=== PATIENT | female | born 1965 | race Two or more races ===

== ENCOUNTER 2023-10-27 12:09 | Emergency (ER) | payer MEDICAID | END 2023-10-27 13:00 | disposition left against medical advice (07) | LOC: ER 12:09 | DX: R11.2 Nausea with vomiting, unspecified (principal); Z53.21 Procedure and treatment not carried out due to patient leaving prior to being seen by health care provider ==

== ENCOUNTER 2024-06-11 08:11 | Inpatient (IN) | payer MEDICAID ==
[2024-06-11] VITALS (53 sets, daily range): BP systolic 68–167; BP diastolic 28–89; PULSE 89–166; RESP 12–46; TEMP 97.7–102.9; O2SAT 94–100
[~2024-06-11] VITALS: Ht 167.6 cm; Wt 114.2 kg
[2024-06-11] MEDS ORDERED: DEXTROSE (50%) 50ML SYRG IV PRN ×3 (08:15→12:45)
[2024-06-11] MEDS: ANGIOMAX 250 MG VIAL IV ONE ×2 (08:17→22:34)
[2024-06-11] MEDS: fentaNYL CITRATE 100 MCG/2 ML VL ONE ×2 (08:17→22:35)
[2024-06-11] MEDS: VERAPAMIL 2.5MG/ML INJ 2ML VIAL IV ONE ×2 (08:17→22:36)
[2024-06-11] MEDS: SODIUM CHL 0.9% 50 ML ONE ×2 (08:18→22:35)
[2024-06-11] MEDS: MIDAZOLAM HCL 2MG/2ML 2ml VIAL (1mg/ml) ONE ×2 (08:18→22:35)
[2024-06-11] MEDS: LIDOCAINE 2%HCL (LOCAL ANESTH.) INJ 20ML MDV ONE ×2 (08:19→22:34)
[2024-06-11] MEDS: ASPirin 300 MG RECTAL SUPP PR ONE (08:30)
[2024-06-11] MEDS: ONDANSETRON HCL 4 MG/2 ML VIAL IV ONE (08:33)
[2024-06-11] MEDS: HEPARIN SODIUM (PORCINE) 5000 UNITS/ML 1ML VIAL IV ONE (08:34)
[2024-06-11] MEDS: INSULIN LANTUS (GLARGINE) 1 /0.01ml (100units/ml) SC ONE (08:35)
[2024-06-11] MEDS: HEPARIN SODIUM (PORCINE) 5000 UNITS/ML 1ML VIAL ONE ×2 (08:35→20:24)
[2024-06-11] MEDS: ASPirin 325 MG TAB PO ONE (08:36)
[2024-06-11 08:41] LABS: Eosinophils # (auto) 0 10 ^3/uL (0-0.8); Hemoglobin 11.7 g/dL (12.2-16.2); Monocytes # (auto) 1.1 10 ^3/uL (0-1.3); Monocytes % (auto) 5.5 % (0.0-12.0); Neutrophils # (auto) 17.8 10 ^3/uL (1.6-8.6); Neutrophils % (auto) 91.3 % (37.0-80.0); White Blood Cell 19.5 10^3/uL (4.4-10.8)
[2024-06-11 08:42] LABS: Basophils # (auto) 0.1 10 ^3/uL (0-0.2); Basophils % (auto) 0.4 % (0.0-2.0); Eosinophils % (auto) 0.1 % (0.0-7.0); Hematocrit 34.7 % (36.0-46.0); Lymphocytes # (auto) 0.5 10 ^3/uL (0.4-5.4); Lymphocytes % (auto) 2.7 % (10.0-50.0); Mean Corpuscular Hgb Conc. 33.8 g/dL (32.0-36.0); Mean Corpuscular Volume 79.9 fL (80.0-100.0); Red Blood Cells 4.34 10^6/uL (4.0-5.20)
[2024-06-11] MEDS ORDERED: NITROGLYCERIN 0.4 MG SL TAB SL PRN (09:00)
[2024-06-11] MEDS ORDERED: DOCUSATE SOD 100 MG CAP PO PRN (09:00)
[2024-06-11] MEDS ORDERED: ACCU-CHEK COMFORT CURVE STRIP VI SCH ×2 (09:00→16:00)
[2024-06-11] MEDS ORDERED: MORPHINE SULFATE INJ 2 MG/ml SYRG IV PRN (09:00)
[2024-06-11] MEDS: InsuLIN REG 1unit/0.01ml Soln (100units/ml) ONE (09:01)
[2024-06-11 09:03] LABS: INR 1.13 (0.9-1.15); Partial Thromboplastin Time 23.7 SEC (24.5-34.5); Prothrombin Time 11.9 sec (9.3-11.8)
[2024-06-11 09:09] LABS: Base Excess -2.7 mmol/L (-2.0-2.0)
[2024-06-11] MEDS: InsuLIN REG 1unit/0.01ml Soln (100units/ml) IV ONE (09:15)
[2024-06-11] MEDS: EPTIFIBATIDE INJ (2MG/ML) 10ML VIAL IV ONE (09:18)
[2024-06-11] MEDS: EPINEPHrine HCL 1 MG/10 ML SYRG ONE (09:20)
[2024-06-11] MEDS: ATROPINE SULF 1 MG/10ml SYR ONE ×2 (09:20→22:36)
[2024-06-11] MEDS: CLOPIDOGREL BISULFATE 75 MG TAB ONE (09:45)
[2024-06-11] MEDS: ASPirin 325 MG TAB ONE (09:45)
[2024-06-11 09:59] LABS: Alanine Aminotransferase 43 U/L (7-40); Albumin 2.9 g/dL (3.2-4.8); Alkaline Phosphatase 101 U/L (46-116); Anion Gap 9 (5-15); Aspartate Aminotransferase 329 U/L (13-40); BUN/Creatinine Ratio 30.7 (10.0-20.0); Bilirubin, Total 0.8 mg/dL (0.2-1.0); Blood Urea Nitrogen 75 mg/dL (9-23); Calcium 7.9 mg/dL (8.7-10.4); Carbon Dioxide 27 mmol/L (20-30); Chloride 97 mmol/L (98-107); Cholesterol 114 mg/dL (< 200); HDL Cholesterol 8 mg/dL (40-59); LDL Cholesterol 42 mg/dL (< 100); Magnesium 1.9 mg/dL (1.6-2.6); Sodium 133 mmol/L (136-145); Total Protein 4.9 g/dL (5.7-8.2); Triglycerides 322 mg/dL (< 150)
[2024-06-11] MEDS: PANTOPRAZOLE 40 MG/10 ML VIAL INJ IV SCH (10:00)
[2024-06-11 10:01] LABS: Glucose 666 mg/dL (74-106)
[2024-06-11] MEDS: SODIUM CHLORIDE 0.9% 1,000 ML IV SCH ×3 (10:15→14:15)
[2024-06-11] MEDS: SODIUM CHLORIDE 0.9% 1,000 ML IV ONE (10:30)
[2024-06-11] MEDS: NOREPINEPHRINE 8 MG/250ML KIT 250 ML IV SCH (11:04)
[2024-06-11] MEDS: POTASSIUM CHL 20MEQ/100ML 100 ML IV SCH ×2 (11:09→19:04)
[2024-06-11] MEDS: PANTOPRAZOLE 40 MG/10 ML VIAL INJ IV ONE (11:09)
[2024-06-11] MEDS: NOREPINEPHRINE 8 MG/250ML KIT 250 ML IV ONE (11:12)
[2024-06-11] MEDS: ACCU-CHEK COMFORT CURVE STRIP VI SCH ×2 (11:37→15:03)
[2024-06-11] MEDS ORDERED: CEFEPIME 2GM/50ML NS 50 ML IV ONE (11:45)
[2024-06-11] MEDS: SODIUM PHOSPHATES 40 MEQ in D5W 5% 250 ML IV ONE (12:00)
[2024-06-11] MEDS: LINEZOLID 600MG/300ML 300 ML IV SCH ×2 (12:01→12:15)
[2024-06-11 13:40] LABS: Lactic Acid w/Reflex 3.7 mmol/L (0.4-2.0)
[2024-06-11 13:42] LABS: Urine Bacteria None Seen /hpf (None Seen)
[2024-06-11] MEDS: CEFEPIME 2GM/50ML NS 50 ML IV ONE (13:44)
[2024-06-11] MEDS ORDERED: CEFEPIME 2GM/50ML NS 50 ML IV SCH (14:00)
[2024-06-11] MEDS: INSULIN DRIP 100 UNIT/100ML 100 ML IV SCH (14:11)
[2024-06-11 14:31] LABS: Chloride 104 mmol/L (98-107); Potassium 3.1 mmol/L (3.5-5.1); Sodium 137 mmol/L (136-145)
[2024-06-11 14:32] LABS: Anion Gap 12 (5-15); Carbon Dioxide 21 mmol/L (20-30)
[2024-06-11 14:33] LABS: Calcium 7.4 mg/dL (8.7-10.4)
[2024-06-11 14:33] LABS: Urine Blood 3+ /uL (Negative); Urine Budding Yeast LOADED /hpf (None Seen); Urine Clarity Ex.Turbid (Clear); Urine Color Red (Yellow); Urine Mucus MANY (None Seen); Urine Protein, UAD 2+ (Negative); Urine Urobilinogen Normal (Negative); Urine WBC 20853 /hpf (0 - 5); Urine WBC Clumps PRESENT /hpf (None Seen)
[2024-06-11 14:37] LABS: Amphetamine Screen, Urine Neg (NEGATIVE); Barbiturate Scree,Urine Neg (NEGATIVE); Benzodiazephine Screen, Urine Neg (NEGATIVE); Cannabinoid Screen, Urine Neg (NEGATIVE); Cocaine Screen, Urine Neg (NEGATIVE); Opiate Scree,Urine Neg (NEGATIVE); Phencyclidine Screen, Urine Neg (NEGATIVE)
[2024-06-11 14:38] LABS: BUN/Creatinine Ratio 27.6 (10.0-20.0)
[2024-06-11 14:38] LABS: Creatinine, Urine 109.34 mg/dL (30.0-125.0)
[2024-06-11 14:58] LABS: Blood Urea Nitrogen 61 mg/dL (9-23)
[2024-06-11 14:59] LABS: Glucose 521 mg/dL (74-106)
[2024-06-11 15:28] LABS: Base Excess -3.7 mmol/L (-2.0-2.0)
[2024-06-11 15:40] LABS: Hematocrit 34.5 % (36.0-46.0); Hemoglobin 11.5 g/dL (12.2-16.2)
[2024-06-11] MEDS: InsuLIN REG 1unit/0.01ml Soln (100units/ml) SC SCH (16:00)
[2024-06-11] MEDS: ACETAMINOPHEN 650 MG RECT SUPP PR PRN (16:39)
[2024-06-11] MEDS: LIDOCAINE 1% (LOCAL ANESTH.) PF 5ml SDV ID ONE (17:00)
[2024-06-11] MEDS: MAGNESIUM SULFATE 1GM/100ML 100 ML IV SCH (18:00)
[2024-06-11] MEDS: AMIODARONE 450mg/250ml AE 250 ML IV ONE (18:13)
[2024-06-11] MEDS: AMIODARONE HCL (50 MG/ ML) 3 ML VIAL IV ONE (18:13)
[2024-06-11] MEDS: AMIODARONE BOLUS KIT 100 ML IV ONE (18:18)
[2024-06-11] MEDS: AMIODARONE 450mg/250ml AE 250 ML IV SCH (18:31)
[2024-06-11] MEDS: ETOMIDATE (2MG/ML) 20ML VIAL IV ONE ×2 (18:39→18:40)
[2024-06-11] MEDS: ROCURONIUM 10MG/ML 10ML VIAL IV ONE (18:39)
[2024-06-11] MEDS: MAGNESIUM SULFATE 1GM/100ML 100 ML IV ONE (18:42)
[2024-06-11] MEDS: POTASSIUM CHL 20MEQ/100ML 100 ML IV ONE (18:42)
[2024-06-11 20:10] LABS: Chloride 107 mmol/L (98-107); Potassium 3.1 mmol/L (3.5-5.1); Sodium 138 mmol/L (136-145)
[2024-06-11 20:11] LABS: Anion Gap 13 (5-15); Calcium 7.7 mg/dL (8.7-10.4); Carbon Dioxide 18 mmol/L (20-30)
[2024-06-11 20:16] LABS: BUN/Creatinine Ratio 19.9 (10.0-20.0); Blood Urea Nitrogen 51 mg/dL (9-23); Glucose 395 mg/dL (74-106)
[2024-06-11] MEDS: CALCIUM GLUC 1,000mg/50ml-NS 50 ML IV ONE (20:17)
[2024-06-11] MEDS: fentaNYL Drip 2500mCg/250mlNS 250 ML IV SCH (21:36)
[2024-06-11] MEDS: SODIUM CHLOR 0.9% PF (SALINE LOCK) 10ML VIAL/SYR IV SCH (22:00)
[2024-06-11] MEDS ORDERED: LINEZOLID 600MG/300ML 300 ML IV SCH (22:00)
[2024-06-11] MEDS: IODIXANOL 320MG/ML 100ML BTL IV ONE (22:33)
[2024-06-11] MEDS: ATORVASTATIN 20 MG TAB PO SCH (22:37)
[2024-06-11] MEDS: fentaNYL Drip 2500mCg/250mlNS 250 ML IV ONE (22:39)
[2024-06-11] MEDS: CARVEDILOL 3.125 MG TAB PO SCH (22:40)
[2024-06-11] MEDS: EPTIFIBATIDE DRIP(0.75MG/ML) 100 ML IV ONE (22:41)
[2024-06-11 23:54] LABS: Base Excess -7.7 mmol/L (-2.0-2.0)
[2024-06-12] VITALS (106 sets, daily range): BP systolic 79–134; BP diastolic 36–99; PULSE 74–119; RESP 12–28; TEMP 99.3–101.1; O2SAT 61–100
[2024-06-12 00:27] LABS: Base Excess -9.5 mmol/L (-2.0-2.0)
[2024-06-12] MEDS: AMIODARONE 450mg/250ml AE 250 ML IV SCH (00:30)
[2024-06-12 03:49] LABS: Red Cell Distribution Width 13.4 % (11.8-14.3)
[2024-06-12 03:57] LABS: Hematocrit 31.4 % (36.0-46.0); Hemoglobin 10.7 g/dL (12.2-16.2); Mean Corpuscular Hemoglobin 27.3 pg (28.0-32.0); Mean Corpuscular Hgb Conc. 34.1 g/dL (32.0-36.0); Red Blood Cells 3.93 10^6/uL (4.0-5.20)
[2024-06-12 04:01] LABS: INR 1.26 (0.9-1.15); Prothrombin Time 13.1 sec (9.3-11.8)
[2024-06-12 04:12] LABS: Alanine Aminotransferase 72 U/L (7-40); Albumin 2.6 g/dL (3.2-4.8); Anion Gap 11 (5-15); Aspartate Aminotransferase 532 U/L (13-40); BUN/Creatinine Ratio 23.5 (10.0-20.0); Calcium 7.8 mg/dL (8.7-10.4); Carbon Dioxide 20 mmol/L (20-30); Chloride 106 mmol/L (98-107); Cholesterol 95 mg/dL (< 200); Glucose 293 mg/dL (74-106); HDL Cholesterol 9 mg/dL (40-59); LDL Cholesterol 30 mg/dL (< 100); Potassium 3.2 mmol/L (3.5-5.1); Sodium 137 mmol/L (136-145); Triglycerides 264 mg/dL (< 150)
[2024-06-12 04:13] LABS: Bilirubin, Total 0.4 mg/dL (0.2-1.0); Phosphorus 2.5 mg/dL (2.4-5.1); Total Protein 5.2 g/dL (5.7-8.2)
[2024-06-12 04:14] LABS: Blood Urea Nitrogen 62 mg/dL (9-23)
[2024-06-12 04:24] LABS: Basophils % (manual) 0 (0.0-2.0); Blast Cells 0; Eosinophils % (manual) 0 (0-7); Metamyelocytes % 0; Myelocytes % 0; Promyelocytes % 0; Reactive Lymphocytes 0; White Blood Cell 32.6 10^3/uL (4.4-10.8)
[2024-06-12 04:36] LABS: Alkaline Phosphatase 119 U/L (46-116)
[2024-06-12 04:46] LABS: Uric Acid 9.4 mg/dL (3.1-7.8)
[2024-06-12 05:35] LABS: Band Neutrophils % (manual) 6; Giant Platelets Few; Large Platelets FEW; Lymphocytes % (manual) 9 (10.0-50.0); Monocytes % (manual) 6 (0-12); Platelet Estimate Adequate
[2024-06-12] MEDS: POTASSIUM CHL 20MEQ/100ML 100 ML IV ONE (05:59)
[2024-06-12 08:57] LABS: Hemoglobin 10.1 g/dL (12.2-16.2)
[2024-06-12 09:02] LABS: Hematocrit 30.1 % (36.0-46.0); Mean Corpuscular Hemoglobin 26.9 pg (28.0-32.0); Mean Corpuscular Hgb Conc. 33.4 g/dL (32.0-36.0); Mean Corpuscular Volume 80.3 fL (80.0-100.0); Red Blood Cells 3.75 10^6/uL (4.0-5.20); Red Cell Distribution Width 13.5 % (11.8-14.3)
[2024-06-12 09:10] LABS: White Blood Cell 31.9 10^3/uL (4.4-10.8)
[2024-06-12 09:12] LABS: Basophils % (manual) 0 (0.0-2.0); Blast Cells 0; Eosinophils % (manual) 0 (0-7); Metamyelocytes % 0; Myelocytes % 0; Promyelocytes % 0; Reactive Lymphocytes 0
[2024-06-12 09:45] LABS: Base Excess -9.5 mmol/L (-2.0-2.0)
[2024-06-12] MEDS ORDERED: LISINOPRIL 5 MG TAB PO SCH (10:00)
[2024-06-12] MEDS: INSULIN LANTUS (GLARGINE) 1 /0.01ml (100units/ml) SC SCH (10:24)
[2024-06-12] MEDS: ASPirin 81 mg TAB PO SCH (10:25)
[2024-06-12] MEDS: CLOPIDOGREL BISULFATE 75 MG TAB PO SCH (10:27)
[2024-06-12] MEDS: CEFEPIME 2GM/50ML NS 50 ML IV SCH (10:28)
[2024-06-12] MEDS ORDERED: DEXTROSE (50%) 50ML SYRG IV PRN (10:30)
[2024-06-12] MEDS ORDERED: SODIUM CHLORIDE 0.9% 1,000 ML IV SCH (10:30)
[2024-06-12 10:53] LABS: Band Neutrophils % (manual) 12; Lymphocytes % (manual) 8 (10.0-50.0); Monocytes % (manual) 7 (0-12); Platelet Estimate Adequate
[2024-06-12] MEDS: ACCU-CHEK COMFORT CURVE STRIP VI SCH (12:23)
[2024-06-12 12:32] LABS: Urine Bacteria FEW /hpf (None Seen); Urine Blood 3+ /uL (Negative); Urine Clarity Ex.Turbid (Clear); Urine Color Light-Orange (Yellow); Urine Mucus FEW (None Seen); Urine Protein, UAD 2+ (Negative); Urine Urobilinogen Normal (Negative); Urine WBC 177 /hpf (0 - 5); Urine WBC Clumps PRESENT /hpf (None Seen); Urine pH 5.5 (5.0-9.0)
[2024-06-12 12:35] LABS: Sodium Urine < 10 mmol/L (40-220)
[2024-06-12] MEDS: InsuLIN REG 1unit/0.01ml Soln (100units/ml) SC SCH (12:38)
[2024-06-12 12:41] LABS: Protein, Urine 233.3 mg/dL (0.0-11.9)
[2024-06-12 12:48] LABS: Urine Specific Gravity > 1.035 (1.001-1.035)
[2024-06-12 13:53] LABS: Hematocrit 27.9 % (36.0-46.0); Hemoglobin 9.2 g/dL (12.2-16.2)
[2024-06-12] MEDS: FREE WATER GT SCH (15:22)
[2024-06-12] MEDS: SODIUM CHLORIDE 0.9% 1,000 ML IV SCH (15:23)
[2024-06-12] MEDS: Nepro With Carb Steady 1 Liter Bottle GT SCH (17:12)
[2024-06-12 19:07] LABS: Potassium 2.9 mmol/L (3.5-5.1)
[2024-06-12] MEDS: POTASSIUM CHL 20MEQ/100ML 100 ML IV SCH (22:32)
[2024-06-13] VITALS (106 sets, daily range): BP systolic 95–144; BP diastolic 48–99; PULSE 85–101; RESP 13–30; TEMP 99.5–100.6; O2SAT 94–100
[2024-06-13] MEDS: SODIUM BICARB 8.4% 50Meq/50ml SYR Vial IV ONE ×2 (02:29→11:52)
[2024-06-13 04:43] LABS: Hematocrit 33.6 % (36.0-46.0); Mean Corpuscular Hemoglobin 27.3 pg (28.0-32.0); Mean Corpuscular Hgb Conc. 32.9 g/dL (32.0-36.0); Mean Corpuscular Volume 83.1 fL (80.0-100.0); Red Blood Cells 4.04 10^6/uL (4.0-5.20); Red Cell Distribution Width 14.3 % (11.8-14.3)
[2024-06-13 04:56] LABS: Alanine Aminotransferase 73 U/L (7-40); Albumin 2.7 g/dL (3.2-4.8); Alkaline Phosphatase 127 U/L (46-116); Anion Gap 10 (5-15); Aspartate Aminotransferase 309 U/L (13-40); BUN/Creatinine Ratio 22.7 (10.0-20.0); Blood Urea Nitrogen 55 mg/dL (9-23); Calcium 7.8 mg/dL (8.7-10.4); Carbon Dioxide 18 mmol/L (20-30); Chloride 109 mmol/L (98-107); Glucose 225 mg/dL (74-106); Potassium 4.1 mmol/L (3.5-5.1); Sodium 137 mmol/L (136-145)
[2024-06-13 04:57] LABS: Bilirubin, Total 0.6 mg/dL (0.2-1.0); Total Protein 5.4 g/dL (5.7-8.2)
[2024-06-13 05:26] LABS: Basophils % (manual) 0 (0.0-2.0); Blast Cells 0; Eosinophils % (manual) 0 (0-7); Metamyelocytes % 0; Myelocytes % 0; Promyelocytes % 0; Reactive Lymphocytes 0; White Blood Cell 37.5 10^3/uL (4.4-10.8)
[2024-06-13 06:19] LABS: Band Neutrophils % (manual) 5; Large Platelets FEW; Lymphocytes % (manual) 2 (10.0-50.0); Monocytes % (manual) 8 (0-12); Platelet Estimate Adequate
[2024-06-13] MEDS ORDERED: POTASSIUM CHL 20MEQ/100ML 100 ML IV ONE (08:30)
[2024-06-13] MEDS: ONDANSETRON HCL 4 MG/2 ML VIAL IV PRN (08:46)
[2024-06-13 09:15] LABS: Base Excess -9.2 mmol/L (-2.0-2.0)
[2024-06-13] MEDS ORDERED: MEROPENEM 500MG IVPB 50 ML IV SCH (10:00)
[2024-06-13] MEDS: MEROPENEM 1GM IVPB 50 ML IV SCH (11:27)
[2024-06-13] MEDS: MIDAZOLAM HCL 5 MG/ML-1ML VIAL ONE (16:26)
[2024-06-13] MEDS: MIDAZOLAM HCL 2MG/2ML 2ml VIAL (1mg/ml) IV ONE (16:30)
[2024-06-14] VITALS (104 sets, daily range): BP systolic 62–133; BP diastolic 40–72; PULSE 72–94; RESP 15–30; TEMP 96.8–101.8; O2SAT 87–100
[2024-06-14 04:10] LABS: Alanine Aminotransferase 60 U/L (7-40); Albumin 2.4 g/dL (3.2-4.8); Alkaline Phosphatase 111 U/L (46-116); Anion Gap 10 (5-15); Aspartate Aminotransferase 157 U/L (13-40); BUN/Creatinine Ratio 30.2 (10.0-20.0); Bilirubin, Total 0.7 mg/dL (0.2-1.0); Blood Urea Nitrogen 48 mg/dL (9-23); Calcium 7.5 mg/dL (8.7-10.4); Carbon Dioxide 19 mmol/L (20-30); Chloride 113 mmol/L (98-107); Glucose 194 mg/dL (74-106); Hematocrit 30.7 % (36.0-46.0); Hemoglobin 10.4 g/dL (12.2-16.2); Mean Corpuscular Hemoglobin 27.8 pg (28.0-32.0); Mean Corpuscular Volume 81.6 fL (80.0-100.0); Red Blood Cells 3.76 10^6/uL (4.0-5.20); Sodium 142 mmol/L (136-145); White Blood Cell 25.2 10^3/uL (4.4-10.8)
[2024-06-14 04:16] LABS: Basophils % (manual) 0 (0.0-2.0); Blast Cells 0; Eosinophils % (manual) 0 (0-7); Metamyelocytes % 0; Promyelocytes % 0; Reactive Lymphocytes 0
[2024-06-14 05:20] LABS: Band Neutrophils % (manual) 2; Lymphocytes % (manual) 7 (10.0-50.0); Monocytes % (manual) 7 (0-12); Myelocytes % 1; Platelet Estimate Adequate
[2024-06-14] MEDS: BUMETANIDE 1mg/4ml VIAL (0.25mg/ml) IV SCH (05:55)
[2024-06-14 07:23] LABS: Base Excess -6.2 mmol/L (-2.0-2.0)
[2024-06-14 08:56] LABS: Hepatitis B Surface Antigen Negative (Negative)
[2024-06-14 09:16] LABS: Hepatitis A Ab IgM Negative
[2024-06-14 09:17] LABS: Hepatitis B Core IgM Negative; Hepatitis C Antibody Negative (Negative)
[2024-06-14] MEDS: ACCU-CHEK COMFORT CURVE STRIP VI SCH (14:00)
[2024-06-14] MEDS: NOREPINEPHRINE 8 MG/250ML KIT 250 ML IV SCH (15:00)
[2024-06-14 16:33] LABS: Base Excess -6.6 mmol/L (-2.0-2.0)
[2024-06-14] MEDS: InsuLIN REG 1unit/0.01ml Soln (100units/ml) SC SCH (18:17)
[2024-06-15] VITALS (96 sets, daily range): BP systolic 80–118; BP diastolic 48–67; PULSE 73–84; RESP 12–100; TEMP 98.2–99.3; O2SAT 77–100
[2024-06-15 04:01] LABS: Basophils # (auto) 0 10 ^3/uL (0-0.2); Basophils % (auto) 0.1 % (0.0-2.0); Eosinophils # (auto) 0 10 ^3/uL (0-0.8); Eosinophils % (auto) 0.1 % (0.0-7.0); Hematocrit 28.2 % (36.0-46.0); Hemoglobin 9.7 g/dL (12.2-16.2); Lymphocytes # (auto) 1.3 10 ^3/uL (0.4-5.4); Lymphocytes % (auto) 5.6 % (10.0-50.0); Mean Corpuscular Hemoglobin 27.5 pg (28.0-32.0); Mean Corpuscular Hgb Conc. 34.6 g/dL (32.0-36.0); Mean Corpuscular Volume 79.6 fL (80.0-100.0); Monocytes # (auto) 1.1 10 ^3/uL (0-1.3); Monocytes % (auto) 5.1 % (0.0-12.0); Neutrophils % (auto) 89.1 % (37.0-80.0); Red Blood Cells 3.54 10^6/uL (4.0-5.20); Red Cell Distribution Width 14.1 % (11.8-14.3); White Blood Cell 22.4 10^3/uL (4.4-10.8)
[2024-06-15 04:15] LABS: Alanine Aminotransferase 49 U/L (7-40); Albumin 2.3 g/dL (3.2-4.8); Alkaline Phosphatase 106 U/L (46-116); Anion Gap 12 (5-15); Aspartate Aminotransferase 86 U/L (13-40); BUN/Creatinine Ratio 40.2 (10.0-20.0); Blood Urea Nitrogen 51 mg/dL (9-23); Calcium 7.4 mg/dL (8.7-10.4); Carbon Dioxide 21 mmol/L (20-30); Chloride 109 mmol/L (98-107); Glucose 216 mg/dL (74-106); Potassium 3.4 mmol/L (3.5-5.1); Sodium 142 mmol/L (136-145)
[2024-06-15 04:16] LABS: Bilirubin, Total 0.8 mg/dL (0.2-1.0); Total Protein 4.8 g/dL (5.7-8.2)
[2024-06-15] MEDS: LORazepam 2MG/ML-1ML VIAL IV ONE (15:15)
[2024-06-15 18:42] LABS: Lactic Acid w/Reflex 3.5 mmol/L (0.4-2.0)
[2024-06-15] MEDS: SODIUM CHLORIDE 0.9% 500 ML IV ONE (19:50)
[2024-06-15] MEDS: POTASSIUM EFFERVESENT TAB 25 MEQ GT ONE (20:18)
[2024-06-16] VITALS (98 sets, daily range): BP systolic 80–156; BP diastolic 45–74; PULSE 70–88; RESP 15–98; TEMP 96.9–99; O2SAT 95–99
[2024-06-16 04:20] LABS: Basophils # (auto) 0 10 ^3/uL (0-0.2); Basophils % (auto) 0.1 % (0.0-2.0); Eosinophils # (auto) 0 10 ^3/uL (0-0.8); Eosinophils % (auto) 0.2 % (0.0-7.0); Hematocrit 30.5 % (36.0-46.0); Hemoglobin 10.6 g/dL (12.2-16.2); Lymphocytes # (auto) 1.7 10 ^3/uL (0.4-5.4); Mean Corpuscular Hemoglobin 27.7 pg (28.0-32.0); Mean Corpuscular Hgb Conc. 34.7 g/dL (32.0-36.0); Mean Corpuscular Volume 79.7 fL (80.0-100.0); Monocytes % (auto) 4.6 % (0.0-12.0); Neutrophils # (auto) 18.7 10 ^3/uL (1.6-8.6); Neutrophils % (auto) 87.1 % (37.0-80.0); Nucleated Red Blood Cells % 0.1 %; Red Blood Cells 3.83 10^6/uL (4.0-5.20); Red Cell Distribution Width 13.9 % (11.8-14.3); White Blood Cell 21.5 10^3/uL (4.4-10.8)
[2024-06-16 04:26] LABS: Alanine Aminotransferase 51 U/L (7-40); Alkaline Phosphatase 114 U/L (46-116); Anion Gap 11 (5-15); BUN/Creatinine Ratio 44.9 (10.0-20.0); Blood Urea Nitrogen 53 mg/dL (9-23); Calcium 7.6 mg/dL (8.7-10.4); Carbon Dioxide 21 mmol/L (20-30); Chloride 109 mmol/L (98-107); Glucose 218 mg/dL (74-106); Potassium 3.5 mmol/L (3.5-5.1); Sodium 141 mmol/L (136-145)
[2024-06-16 04:27] LABS: Albumin 2.3 g/dL (3.2-4.8); Aspartate Aminotransferase 80 U/L (13-40)
[2024-06-16 04:28] LABS: Bilirubin, Total 0.7 mg/dL (0.2-1.0); Total Protein 4.9 g/dL (5.7-8.2)
[2024-06-16] MEDS: metroNIDAZOLE 500MG/100ML 100 ML IV ONE (11:00)
[2024-06-16] MEDS: POTASSIUM EFFERVESENT TAB 25 MEQ GT ONE (12:19)
[2024-06-16] MEDS: LACTULOSE 20Gm/30ML SOLN PO ONE (12:19)
[2024-06-16] MEDS: SODIUM CHLORIDE 0.9% 1,000 ML IV ONE (16:15)
[2024-06-16] MEDS: metroNIDAZOLE 500MG/100ML 100 ML IV SCH (17:36)
[2024-06-16] MEDS: ACETAMINOPHEN 325 MG TAB PO PRN (21:18)
[2024-06-16 21:22] LABS: Potassium 3.5 mmol/L (3.5-5.1)
[2024-06-16] MEDS: FREE WATER GT SCH (21:23)
[2024-06-16] MEDS: LACTULOSE 20Gm/30ML SOLN PO SCH (21:23)
[2024-06-16 21:29] LABS: Magnesium 1.6 mg/dL (1.6-2.6)
[2024-06-16] MEDS: MAGNESIUM SULFATE 1GM/100ML 100 ML IV SCH (22:52)
[2024-06-17] VITALS (77 sets, daily range): BP systolic 86–138; BP diastolic 41–73; PULSE 73–83; RESP 15–23; TEMP 96.8–98.7; O2SAT 95–99
[2024-06-17 03:51] LABS: Anion Gap 12 (5-15); Carbon Dioxide 22 mmol/L (20-30); Chloride 111 mmol/L (98-107); Potassium 3.3 mmol/L (3.5-5.1); Sodium 145 mmol/L (136-145)
[2024-06-17 03:52] LABS: Calcium 7.7 mg/dL (8.7-10.4)
[2024-06-17 03:56] LABS: Basophils # (auto) 0 10 ^3/uL (0-0.2); Basophils % (auto) 0.1 % (0.0-2.0); Hemoglobin 10.2 g/dL (12.2-16.2); Monocytes # (auto) 0.7 10 ^3/uL (0-1.3)
[2024-06-17 03:57] LABS: Blood Urea Nitrogen 44 mg/dL (9-23); Glucose 198 mg/dL (74-106); Magnesium 2.2 mg/dL (1.6-2.6)
[2024-06-17 03:59] LABS: Eosinophils # (auto) 0.1 10 ^3/uL (0-0.8); Eosinophils % (auto) 0.5 % (0.0-7.0); Hematocrit 30.2 % (36.0-46.0); Lymphocytes # (auto) 1.6 10 ^3/uL (0.4-5.4); Lymphocytes % (auto) 8.4 % (10.0-50.0); Mean Corpuscular Hemoglobin 27.3 pg (28.0-32.0); Mean Corpuscular Hgb Conc. 33.9 g/dL (32.0-36.0); Mean Corpuscular Volume 80.4 fL (80.0-100.0); Monocytes % (auto) 3.6 % (0.0-12.0); Neutrophils # (auto) 16.4 10 ^3/uL (1.6-8.6); Neutrophils % (auto) 87.4 % (37.0-80.0); Nucleated Red Blood Cells % 0.6 %; Red Blood Cells 3.76 10^6/uL (4.0-5.20); White Blood Cell 18.8 10^3/uL (4.4-10.8)
[2024-06-17 04:28] LABS: Lactic Acid w/Reflex 3.3 mmol/L (0.4-2.0)
[2024-06-17] MEDS: POTASSIUM CHL 20MEQ/100ML 100 ML IV ONE ×2 (06:27→17:33)
[2024-06-18] VITALS (87 sets, daily range): BP systolic 88–131; BP diastolic 49–71; PULSE 74–92; RESP 13–26; TEMP 96.7–98.4; O2SAT 93–100
[2024-06-18 04:03] LABS: Basophils # (auto) 0 10 ^3/uL (0-0.2); Basophils % (auto) 0.1 % (0.0-2.0); Eosinophils # (auto) 0 10 ^3/uL (0-0.8); Eosinophils % (auto) 0.2 % (0.0-7.0); Hemoglobin 10.4 g/dL (12.2-16.2); Lymphocytes # (auto) 1.3 10 ^3/uL (0.4-5.4); Lymphocytes % (auto) 6.9 % (10.0-50.0); Mean Corpuscular Hgb Conc. 33.6 g/dL (32.0-36.0); Mean Corpuscular Volume 80.2 fL (80.0-100.0); Monocytes # (auto) 0.6 10 ^3/uL (0-1.3); Monocytes % (auto) 3.4 % (0.0-12.0); Neutrophils # (auto) 16.5 10 ^3/uL (1.6-8.6); Neutrophils % (auto) 89.4 % (37.0-80.0); Nucleated Red Blood Cells % 0.9 %; Red Blood Cells 3.86 10^6/uL (4.0-5.20); Red Cell Distribution Width 14.1 % (11.8-14.3); White Blood Cell 18.5 10^3/uL (4.4-10.8)
[2024-06-18 04:06] LABS: Anion Gap 11 (5-15); Carbon Dioxide 22 mmol/L (20-30); Chloride 112 mmol/L (98-107); Potassium 3.8 mmol/L (3.5-5.1); Sodium 145 mmol/L (136-145)
[2024-06-18 04:08] LABS: Calcium 7.6 mg/dL (8.7-10.4)
[2024-06-18 04:12] LABS: Glucose 199 mg/dL (74-106)
[2024-06-18 04:13] LABS: BUN/Creatinine Ratio 45.9 (10.0-20.0); Blood Urea Nitrogen 45 mg/dL (9-23)
[2024-06-18] MEDS: LACTATED RINGER'S 1,000 ML IV ONE (12:44)
[2024-06-18] MEDS: GADOTERATE MEG 10 MMOL/20ml INJ (0.5MMOL/ml) IV ONE (15:15)
[2024-06-18] MEDS: AMIODARONE HCL 200 MG TAB PO SCH (22:02)
[2024-06-19] VITALS (48 sets, daily range): BP systolic 86–122; BP diastolic 48–86; PULSE 64–79; RESP 10–21; TEMP 96.2–97.5; O2SAT 92–100
[2024-06-19 03:46] LABS: Basophils # (auto) 0 10 ^3/uL (0-0.2); Eosinophils # (auto) 0.1 10 ^3/uL (0-0.8); Lymphocytes # (auto) 1.2 10 ^3/uL (0.4-5.4); Monocytes # (auto) 0.4 10 ^3/uL (0-1.3)
[2024-06-19 03:50] LABS: Basophils % (auto) 0.2 % (0.0-2.0); Eosinophils % (auto) 0.5 % (0.0-7.0); Hematocrit 27.5 % (36.0-46.0); Hemoglobin 9.3 g/dL (12.2-16.2); Lymphocytes % (auto) 9.2 % (10.0-50.0); Mean Corpuscular Hemoglobin 27.2 pg (28.0-32.0); Mean Corpuscular Hgb Conc. 33.7 g/dL (32.0-36.0); Mean Corpuscular Volume 80.7 fL (80.0-100.0); Monocytes % (auto) 3.2 % (0.0-12.0); Neutrophils # (auto) 11.7 10 ^3/uL (1.6-8.6); Neutrophils % (auto) 86.9 % (37.0-80.0); Nucleated Red Blood Cells % 0.5 %; Red Blood Cells 3.41 10^6/uL (4.0-5.20); Red Cell Distribution Width 14.1 % (11.8-14.3); White Blood Cell 13.5 10^3/uL (4.4-10.8)
[2024-06-19 04:03] LABS: Anion Gap 12 (5-15); Carbon Dioxide 22 mmol/L (20-30); Chloride 111 mmol/L (98-107); Potassium 3.4 mmol/L (3.5-5.1); Sodium 145 mmol/L (136-145)
[2024-06-19 04:04] LABS: Calcium 7.4 mg/dL (8.7-10.4)
[2024-06-19 04:09] LABS: BUN/Creatinine Ratio 47.5 (10.0-20.0); Blood Urea Nitrogen 38 mg/dL (9-23); Glucose 156 mg/dL (74-106)
[2024-06-19 06:57] LABS: Large Platelets FEW; Platelet Estimate Decreased
[2024-06-19] MEDS ORDERED: TPN PER PHARMACY 0 ML IV SCH (09:15)
[2024-06-19 09:42] LABS: Albumin 2.1 g/dL (3.2-4.8); Bilirubin, Direct 0.2 mg/dL (<0.3); Bilirubin, Total 0.4 mg/dL (0.2-1.0); Magnesium 1.8 mg/dL (1.6-2.6); Phosphorus 2.5 mg/dL (2.4-5.1); Total Protein 4.2 g/dL (5.7-8.2)
[2024-06-19] MEDS: LACTATED RINGER'S 1,000 ML IV SCH (10:17)
[2024-06-19] MEDS: InsuLIN REG 1unit/0.01ml Soln (100units/ml) SC SCH (11:52)
[2024-06-19] MEDS: ACCU-CHEK COMFORT CURVE STRIP VI SCH (11:53)
[2024-06-19] MEDS: AMPICILLIN & SULBACTAM SODIUM 3 GM in SODIUM CHL 0.9% 100 ML IV SCH (12:01)
[2024-06-19] MEDS: POTASSIUM PHOSPHATE 26.4 MEQ in SODIUM CHL 0.9% 100 ML IV ONE (12:03)
[2024-06-19] MEDS: DEXTROSE (50%) 50ML SYRG IV SCH (18:23)
[2024-06-19] MEDS: TPN PER PHARMACY IV NR (19:50)
[2024-06-20] VITALS (59 sets, daily range): BP systolic 84–128; BP diastolic 47–74; PULSE 73–96; RESP 10–24; TEMP 96.5–98.5; O2SAT 85–100
[2024-06-20 06:41] LABS: Basophils # (auto) 0 10 ^3/uL (0-0.2); Basophils % (auto) 0.2 % (0.0-2.0); Eosinophils # (auto) 0.1 10 ^3/uL (0-0.8); Eosinophils % (auto) 0.5 % (0.0-7.0); Hemoglobin 8.7 g/dL (12.2-16.2); Lymphocytes # (auto) 0.9 10 ^3/uL (0.4-5.4); Mean Corpuscular Hemoglobin 27.1 pg (28.0-32.0); Mean Corpuscular Hgb Conc. 33.4 g/dL (32.0-36.0); Monocytes # (auto) 0.3 10 ^3/uL (0-1.3); Monocytes % (auto) 2.4 % (0.0-12.0); Neutrophils # (auto) 10.5 10 ^3/uL (1.6-8.6); Neutrophils % (auto) 88.9 % (37.0-80.0); Nucleated Red Blood Cells % 0.3 %; Red Blood Cells 3.21 10^6/uL (4.0-5.20); White Blood Cell 11.8 10^3/uL (4.4-10.8)
[2024-06-20 06:53] LABS: Chloride 114 mmol/L (98-107); Potassium 4.1 mmol/L (3.5-5.1); Sodium 148 mmol/L (136-145)
[2024-06-20 06:55] LABS: Anion Gap 8 (5-15); Carbon Dioxide 26 mmol/L (20-30)
[2024-06-20 06:56] LABS: Calcium 7.5 mg/dL (8.7-10.4)
[2024-06-20 07:00] LABS: Glucose 215 mg/dL (74-106)
[2024-06-20 07:01] LABS: Alkaline Phosphatase 89 U/L (46-116); BUN/Creatinine Ratio 53.8 (10.0-20.0); Blood Urea Nitrogen 35 mg/dL (9-23); Magnesium 1.9 mg/dL (1.6-2.6)
[2024-06-20 07:02] LABS: Alanine Aminotransferase 16 U/L (7-40)
[2024-06-20 07:03] LABS: Aspartate Aminotransferase 24 U/L (13-40); Bilirubin, Total 0.4 mg/dL (0.2-1.0); Phosphorus 3.2 mg/dL (2.4-5.1)
[2024-06-20] MEDS: ENOXAPARIN SOD 100 MG/1 ML SYRINGE SC SCH (17:44)
[2024-06-20] MEDS: TPN PER PHARMACY IV NR (21:01)
[2024-06-21] VITALS (12 sets, daily range): BP systolic 104–134; BP diastolic 56–69; PULSE 78–91; RESP 14–21; TEMP 97.5–98.2; O2SAT 94–100
[2024-06-21 05:15] LABS: Alanine Aminotransferase 12 U/L (7-40); Albumin 1.9 g/dL (3.2-4.8); Alkaline Phosphatase 82 U/L (46-116); Anion Gap 6 (5-15); Aspartate Aminotransferase 20 U/L (13-40); BUN/Creatinine Ratio 54.7 (10.0-20.0); Bilirubin, Total 0.4 mg/dL (0.2-1.0); Blood Urea Nitrogen 29 mg/dL (9-23); Calcium 7.3 mg/dL (8.7-10.4); Carbon Dioxide 26 mmol/L (20-30); Chloride 114 mmol/L (98-107); Glucose 167 mg/dL (74-106); Magnesium 1.9 mg/dL (1.6-2.6); Phosphorus 2.7 mg/dL (2.4-5.1); Potassium 3.6 mmol/L (3.5-5.1); Sodium 146 mmol/L (136-145); Total Protein 4.1 g/dL (5.7-8.2)
[2024-06-21 09:17] LABS: Basophils # (auto) 0 10 ^3/uL (0-0.2); Basophils % (auto) 0.4 % (0.0-2.0); Eosinophils # (auto) 0.1 10 ^3/uL (0-0.8); Eosinophils % (auto) 0.9 % (0.0-7.0); Hematocrit 24.1 % (36.0-46.0); Hemoglobin 7.9 g/dL (12.2-16.2); Lymphocytes % (auto) 11.2 % (10.0-50.0); Mean Corpuscular Hemoglobin 26.6 pg (28.0-32.0); Mean Corpuscular Hgb Conc. 32.8 g/dL (32.0-36.0); Mean Corpuscular Volume 81.2 fL (80.0-100.0); Monocytes # (auto) 0.3 10 ^3/uL (0-1.3); Monocytes % (auto) 3.3 % (0.0-12.0); Neutrophils # (auto) 7.7 10 ^3/uL (1.6-8.6); Neutrophils % (auto) 84.2 % (37.0-80.0); Nucleated Red Blood Cells % 0.5 %; Red Blood Cells 2.97 10^6/uL (4.0-5.20); Red Cell Distribution Width 13.7 % (11.8-14.3); White Blood Cell 9.1 10^3/uL (4.4-10.8)
[2024-06-21] MEDS: TPN PER PHARMACY IV NR (20:25)
[2024-06-22] VITALS (16 sets, daily range): BP systolic 86–134; BP diastolic 41–65; PULSE 74–82; RESP 16–20; TEMP 97.1–97.5; O2SAT 94–100
[2024-06-22 06:03] LABS: Alkaline Phosphatase 89 U/L (46-116); Anion Gap 7 (5-15); Aspartate Aminotransferase 20 U/L (13-40); BUN/Creatinine Ratio 58.7 (10.0-20.0); Bilirubin, Total 0.4 mg/dL (0.2-1.0); Blood Urea Nitrogen 27 mg/dL (9-23); Calcium 7.5 mg/dL (8.7-10.4); Carbon Dioxide 26 mmol/L (20-30); Chloride 113 mmol/L (98-107); Glucose 174 mg/dL (74-106); Magnesium 1.9 mg/dL (1.6-2.6); Phosphorus 2.5 mg/dL (2.4-5.1); Potassium 3.8 mmol/L (3.5-5.1); Sodium 146 mmol/L (136-145)
[2024-06-22 06:10] LABS: Basophils # (auto) 0 10 ^3/uL (0-0.2); Basophils % (auto) 0.4 % (0.0-2.0); Eosinophils # (auto) 0.1 10 ^3/uL (0-0.8); Eosinophils % (auto) 0.7 % (0.0-7.0); Hematocrit 24.3 % (36.0-46.0); Hemoglobin 8.3 g/dL (12.2-16.2); Lymphocytes # (auto) 1.1 10 ^3/uL (0.4-5.4); Lymphocytes % (auto) 12.2 % (10.0-50.0); Mean Corpuscular Hemoglobin 27.4 pg (28.0-32.0); Mean Corpuscular Hgb Conc. 34.3 g/dL (32.0-36.0); Mean Corpuscular Volume 79.8 fL (80.0-100.0); Monocytes # (auto) 0.4 10 ^3/uL (0-1.3); Monocytes % (auto) 4.6 % (0.0-12.0); Neutrophils # (auto) 7.1 10 ^3/uL (1.6-8.6); Neutrophils % (auto) 82.1 % (37.0-80.0); Nucleated Red Blood Cells % 0.2 %; Red Blood Cells 3.05 10^6/uL (4.0-5.20); Red Cell Distribution Width 13.4 % (11.8-14.3); White Blood Cell 8.6 10^3/uL (4.4-10.8)
[2024-06-22 06:12] LABS: Alanine Aminotransferase 11 U/L (7-40)
[2024-06-22 07:10] LABS: Total Protein 4.5 g/dL (5.7-8.2)
[2024-06-22] MEDS: TPN PER PHARMACY IV NR (20:00)
[2024-06-23] VITALS (24 sets, daily range): BP systolic 99–136; BP diastolic 57–73; PULSE 72–93; RESP 16–22; TEMP 96.7–97.8; O2SAT 94–100
[2024-06-23 06:12] LABS: Basophils # (auto) 0 10 ^3/uL (0-0.2); Eosinophils # (auto) 0.1 10 ^3/uL (0-0.8); Eosinophils % (auto) 0.9 % (0.0-7.0); Mean Corpuscular Hgb Conc. 34.1 g/dL (32.0-36.0); Monocytes # (auto) 0.5 10 ^3/uL (0-1.3); Neutrophils # (auto) 6.3 10 ^3/uL (1.6-8.6); White Blood Cell 7.9 10^3/uL (4.4-10.8)
[2024-06-23 06:18] LABS: Basophils % (auto) 0.4 % (0.0-2.0); Hematocrit 22.3 % (36.0-46.0); Hemoglobin 7.6 g/dL (12.2-16.2); Lymphocytes % (auto) 12.6 % (10.0-50.0); Mean Corpuscular Hemoglobin 27.5 pg (28.0-32.0); Mean Corpuscular Volume 80.8 fL (80.0-100.0); Monocytes % (auto) 6.8 % (0.0-12.0); Neutrophils % (auto) 79.3 % (37.0-80.0); Nucleated Red Blood Cells % 0.3 %; Red Blood Cells 2.77 10^6/uL (4.0-5.20); Red Cell Distribution Width 13.7 % (11.8-14.3)
[2024-06-23 06:42] LABS: Alkaline Phosphatase 87 U/L (46-116); Anion Gap 6 (5-15); Calcium 7.6 mg/dL (8.7-10.4); Carbon Dioxide 28 mmol/L (20-30); Chloride 113 mmol/L (98-107); Glucose 159 mg/dL (74-106); Potassium 3.8 mmol/L (3.5-5.1); Sodium 147 mmol/L (136-145)
[2024-06-23 06:43] LABS: Blood Urea Nitrogen 22 mg/dL (9-23)
[2024-06-23 06:44] LABS: Aspartate Aminotransferase 17 U/L (13-40)
[2024-06-23 06:45] LABS: Bilirubin, Total 0.5 mg/dL (0.2-1.0); Phosphorus 2.3 mg/dL (2.4-5.1); Total Protein 4.4 g/dL (5.7-8.2)
[2024-06-23 06:48] LABS: Alanine Aminotransferase 9 U/L (7-40)
[2024-06-23 07:11] LABS: BUN/Creatinine Ratio 45.8 (10.0-20.0)
[2024-06-23] MEDS ORDERED: DEXTROSE (50%) 50ML SYRG IV PRN (11:00)
[2024-06-23] MEDS: InsuLIN REG 1unit/0.01ml Soln (100units/ml) SC SCH (11:38)
[2024-06-23] MEDS: ACCU-CHEK COMFORT CURVE STRIP VI SCH (11:39)
[2024-06-24] VITALS (25 sets, daily range): BP systolic 90–132; BP diastolic 53–74; PULSE 77–86; RESP 16–22; TEMP 97–98.7; O2SAT 94–98
[2024-06-24 05:31] LABS: Basophils # (auto) 0 10 ^3/uL (0-0.2); Basophils % (auto) 0.4 % (0.0-2.0); Eosinophils # (auto) 0.1 10 ^3/uL (0-0.8); Eosinophils % (auto) 0.6 % (0.0-7.0); Hematocrit 22.2 % (36.0-46.0); Hemoglobin 7.4 g/dL (12.2-16.2); Lymphocytes # (auto) 1.1 10 ^3/uL (0.4-5.4); Lymphocytes % (auto) 12.4 % (10.0-50.0); Mean Corpuscular Hemoglobin 27.1 pg (28.0-32.0); Mean Corpuscular Hgb Conc. 33.2 g/dL (32.0-36.0); Mean Corpuscular Volume 81.4 fL (80.0-100.0); Monocytes # (auto) 0.9 10 ^3/uL (0-1.3); Monocytes % (auto) 9.9 % (0.0-12.0); Neutrophils # (auto) 7.1 10 ^3/uL (1.6-8.6); Neutrophils % (auto) 76.7 % (37.0-80.0); Nucleated Red Blood Cells % 0.5 %; Red Blood Cells 2.73 10^6/uL (4.0-5.20); Red Cell Distribution Width 13.6 % (11.8-14.3); White Blood Cell 9.3 10^3/uL (4.4-10.8)
[2024-06-24 05:38] LABS: Alkaline Phosphatase 94 U/L (46-116); Anion Gap 5 (5-15); Aspartate Aminotransferase 20 U/L (13-40); Bilirubin, Total 0.4 mg/dL (0.2-1.0); Blood Urea Nitrogen 14 mg/dL (9-23); Calcium 7.4 mg/dL (8.7-10.4); Carbon Dioxide 27 mmol/L (20-30); Chloride 113 mmol/L (98-107); Glucose 123 mg/dL (74-106); Potassium 4.1 mmol/L (3.5-5.1); Sodium 145 mmol/L (136-145); Total Protein 4.5 g/dL (5.7-8.2)
[2024-06-24 05:43] LABS: Alanine Aminotransferase < 9 U/L (7-40)
[2024-06-25] VITALS (22 sets, daily range): BP systolic 96–135; BP diastolic 50–84; PULSE 74–91; RESP 13–21; TEMP 97.4–100; O2SAT 93–98
[2024-06-25 05:17] LABS: Hemoglobin 7.2 g/dL (12.2-16.2); Mean Corpuscular Hgb Conc. 33.7 g/dL (32.0-36.0)
[2024-06-25 05:23] LABS: Hematocrit 21.3 % (36.0-46.0); Mean Corpuscular Hemoglobin 27.4 pg (28.0-32.0); Mean Corpuscular Volume 81.1 fL (80.0-100.0); Red Blood Cells 2.63 10^6/uL (4.0-5.20); Red Cell Distribution Width 13.6 % (11.8-14.3); White Blood Cell 8.4 10^3/uL (4.4-10.8)
[2024-06-25 05:25] LABS: INR 1.08 (0.9-1.15); Partial Thromboplastin Time 29.3 SEC (24.5-34.5); Prothrombin Time 11.4 sec (9.3-11.8)
[2024-06-25 05:34] LABS: Band Neutrophils % (manual) 0; Basophils % (manual) 0 (0.0-2.0); Blast Cells 0; Eosinophils % (manual) 0 (0-7); Metamyelocytes % 0; Myelocytes % 0; Promyelocytes % 0; Reactive Lymphocytes 0
[2024-06-25 05:48] LABS: Alanine Aminotransferase 10 U/L (7-40); Albumin 2.1 g/dL (3.2-4.8); Alkaline Phosphatase 106 U/L (46-116); Anion Gap 4 (5-15); Aspartate Aminotransferase 21 U/L (13-40); BUN/Creatinine Ratio 29.3 (10.0-20.0); Blood Urea Nitrogen 17 mg/dL (9-23); Calcium 7.6 mg/dL (8.7-10.4); Carbon Dioxide 28 mmol/L (20-30); Chloride 112 mmol/L (98-107); Glucose 113 mg/dL (74-106); Potassium 4.2 mmol/L (3.5-5.1); Sodium 144 mmol/L (136-145)
[2024-06-25 05:49] LABS: Bilirubin, Total 0.5 mg/dL (0.2-1.0); Total Protein 4.6 g/dL (5.7-8.2)
[2024-06-25 07:57] LABS: Lymphocytes % (manual) 12 (10.0-50.0); Monocytes % (manual) 5 (0-12); Smudge Cells 1 /100 WBC
[2024-06-25 07:58] LABS: Platelet Estimate Decreased
[2024-06-25] MEDS: IODIXANOL 320MG/ML 100ML BTL IV ONE (14:16)
[2024-06-25] MEDS: LIDOCAINE 2%HCL (LOCAL ANESTH.) INJ 20ML MDV ONE (14:16)
[2024-06-25] MEDS: fentaNYL CITRATE 100 MCG/2 ML VL ONE (14:42)
[2024-06-25] MEDS: MIDAZOLAM HCL 2MG/2ML 2ml VIAL (1mg/ml) ONE (14:42)
[2024-06-26] VITALS (18 sets, daily range): BP systolic 85–129; BP diastolic 45–69; PULSE 77–86; RESP 13–22; TEMP 97.2–98.9; O2SAT 88–97
[2024-06-26] MEDS: ENOXAPARIN SOD 100 MG/1 ML SYRINGE SC ONE (04:30)
[2024-06-26 05:47] LABS: Basophils # (auto) 0 10 ^3/uL (0-0.2); Eosinophils # (auto) 0 10 ^3/uL (0-0.8); Hemoglobin 7.4 g/dL (12.2-16.2); Mean Corpuscular Volume 81.3 fL (80.0-100.0); Monocytes % (auto) 7.8 % (0.0-12.0)
[2024-06-26 05:51] LABS: Basophils % (auto) 0.4 % (0.0-2.0); Eosinophils % (auto) 0.5 % (0.0-7.0); Hematocrit 22.1 % (36.0-46.0); Lymphocytes % (auto) 11.6 % (10.0-50.0); Mean Corpuscular Hemoglobin 27.3 pg (28.0-32.0); Mean Corpuscular Hgb Conc. 33.6 g/dL (32.0-36.0); Monocytes # (auto) 0.6 10 ^3/uL (0-1.3); Neutrophils # (auto) 6.6 10 ^3/uL (1.6-8.6); Neutrophils % (auto) 79.7 % (37.0-80.0); Nucleated Red Blood Cells % 1.9 %; Red Blood Cells 2.72 10^6/uL (4.0-5.20); Red Cell Distribution Width 13.7 % (11.8-14.3); White Blood Cell 8.3 10^3/uL (4.4-10.8)
[2024-06-26 06:10] LABS: Alkaline Phosphatase 113 U/L (46-116); Anion Gap 6 (5-15); Aspartate Aminotransferase 22 U/L (13-40); BUN/Creatinine Ratio 24.6 (10.0-20.0); Bilirubin, Total 0.5 mg/dL (0.2-1.0); Blood Urea Nitrogen 15 mg/dL (9-23); Calcium 7.5 mg/dL (8.7-10.4); Carbon Dioxide 27 mmol/L (20-30); Chloride 112 mmol/L (98-107); Glucose 85 mg/dL (74-106); Potassium 3.9 mmol/L (3.5-5.1); Sodium 145 mmol/L (136-145); Total Protein 4.5 g/dL (5.7-8.2)
[2024-06-26 06:28] LABS: Alanine Aminotransferase < 9 U/L (7-40)
[2024-06-26] MEDS: CLOPIDOGREL BISULFATE 75 MG TAB PO SCH (09:08)
[2024-06-26] MEDS: ASPirin 81 mg TAB PO SCH (09:08)
[2024-06-26] MEDS: CLOPIDOGREL BISULFATE 75 MG TAB PO ONE (16:36)
[2024-06-27] VITALS (9 sets, daily range): BP systolic 113–131; BP diastolic 62–65; PULSE 74–88; RESP 17–18; TEMP 97.9–98.8; O2SAT 91–97
[2024-06-27] MEDS: FUROSEMIDE 20 MG/2 ML VIAL IV SCH (11:12)
[2024-06-28] VITALS (8 sets, daily range): BP systolic 103–141; BP diastolic 61–73; PULSE 68–83; RESP 16–20; TEMP 97.6–98.2; O2SAT 91–97
[2024-06-29] VITALS (8 sets, daily range): BP systolic 96–150; BP diastolic 55–81; PULSE 76–84; RESP 16–20; TEMP 97.6–98; O2SAT 91–99
[2024-06-30] VITALS (7 sets, daily range): BP systolic 112–137; BP diastolic 65–72; PULSE 78–81; RESP 16–20; TEMP 97.6–98.2; O2SAT 90–96
[2024-07-01 05:00] VITALS: BP 114/63; PULSE 75; RESP 19; TEMP 98; O2SAT 92
[2024-07-01 08:00] VITALS: BP 115/55; PULSE 76; PULSE 77; RESP 16; TEMP 97.8; O2SAT 92; O2SAT 97
[2024-07-01 13:19] VITALS: BP 100/55; PULSE 54; RESP 18; TEMP 99.4; O2SAT 99
[2024-07-01 20:00] VITALS: PULSE 84; PULSE 85; RESP 20; O2SAT 94
[2024-07-01 21:00] VITALS: BP 136/54; PULSE 81; RESP 18; TEMP 97.5; O2SAT 97
[2024-07-02] VITALS (8 sets, daily range): BP systolic 114–157; BP diastolic 56–68; PULSE 73–79; RESP 17–18; TEMP 97.7–98.4; O2SAT 90–97
[2024-07-02 10:50] LABS: Basophils # (auto) 0.1 10 ^3/uL (0-0.2); Hemoglobin 7.8 g/dL (12.2-16.2); Neutrophils # (auto) 10.4 10 ^3/uL (1.6-8.6)
[2024-07-02 10:52] LABS: Basophils % (auto) 0.7 % (0.0-2.0); Eosinophils # (auto) 0.1 10 ^3/uL (0-0.8); Eosinophils % (auto) 0.9 % (0.0-7.0); Hematocrit 24.6 % (36.0-46.0); Lymphocytes % (auto) 8.1 % (10.0-50.0); Mean Corpuscular Hemoglobin 26.4 pg (28.0-32.0); Mean Corpuscular Hgb Conc. 31.6 g/dL (32.0-36.0); Mean Corpuscular Volume 83.7 fL (80.0-100.0); Monocytes # (auto) 0.8 10 ^3/uL (0-1.3); Monocytes % (auto) 6.5 % (0.0-12.0); Neutrophils % (auto) 83.8 % (37.0-80.0); Nucleated Red Blood Cells % 0.7 %; Red Blood Cells 2.94 10^6/uL (4.0-5.20); Red Cell Distribution Width 15.4 % (11.8-14.3); White Blood Cell 12.4 10^3/uL (4.4-10.8)
[2024-07-02 11:00] LABS: Anion Gap 6 (5-15); Carbon Dioxide 28 mmol/L (20-30); Chloride 107 mmol/L (98-107); Potassium 3.8 mmol/L (3.5-5.1); Sodium 141 mmol/L (136-145)
[2024-07-02 11:01] LABS: Calcium 7.6 mg/dL (8.7-10.4)
[2024-07-02 11:06] LABS: BUN/Creatinine Ratio 19.7 (10.0-20.0); Blood Urea Nitrogen 15 mg/dL (9-23); Glucose 156 mg/dL (74-106)
[2024-07-03 05:00] VITALS: BP 122/65; PULSE 72; RESP 18; TEMP 98.3; O2SAT 96
[2024-07-03 08:00] VITALS: PULSE 77; PULSE 79; RESP 16; O2SAT 92
[2024-07-03 09:00] VITALS: BP 148/70; PULSE 77; RESP 16; TEMP 97.6; O2SAT 90
[2024-07-03 11:25] VITALS: BP 148/70; PULSE 77; RESP 16; TEMP 97.4; O2SAT 92
== END 2024-07-03 12:15 | disposition home or self-care (01) | DRG 710 ==
LOC: ER 08:11 → EDBD 08:11 → TELE 08:55 → ICU CENTRL 12:37 → ICU WEST 21:35 → DOU IN ICU 06-20 12:02 → TELE-CENTR 06-26 17:11
PROVIDERS: ADMIT Nurse Practitioner Family; ATTEND Nurse Practitioner Acute Care
PROC: 5A1945Z Respiratory Ventilation, 24-96 Consecutive Hours (ICD-10-PCS; principal; 2024-06-11)
PROC: 027034Z Dilation of Coronary Artery, One Artery with Drug-eluting Intraluminal Device, Percutaneous Approach (ICD-10-PCS; 2024-06-11)
PROC: 0BH17EZ Insertion of Endotracheal Airway into Trachea, Via Natural or Artificial Opening (ICD-10-PCS; 2024-06-11)
PROC: 02C03ZZ Extirpation of Matter from Coronary Artery, One Artery, Percutaneous Approach (ICD-10-PCS; 2024-06-11)
PROC: B211YZZ Fluoroscopy of Multiple Coronary Arteries using Other Contrast (ICD-10-PCS; 2024-06-11)
PROC: B215YZZ Fluoroscopy of Left Heart using Other Contrast (ICD-10-PCS; 2024-06-11)
PROC: 4A023N7 Measurement of Cardiac Sampling and Pressure, Left Heart, Percutaneous Approach (ICD-10-PCS; 2024-06-11)
PROC: B240ZZ3 Ultrasonography of Single Coronary Artery, Intravascular (ICD-10-PCS; 2024-06-11)
PROC: 4A133B1 Monitoring of Arterial Pressure, Peripheral, Percutaneous Approach (ICD-10-PCS; 2024-06-11)
PROC: 3E03317 Introduction of Other Thrombolytic into Peripheral Vein, Percutaneous Approach (ICD-10-PCS; 2024-06-11)
PROC: 02HV33Z Insertion of Infusion Device into Superior Vena Cava, Percutaneous Approach (ICD-10-PCS; 2024-06-11)
PROC: B548ZZA Ultrasonography of Superior Vena Cava, Guidance (ICD-10-PCS; 2024-06-11)
PROC: 0F943ZZ Drainage of Gallbladder, Percutaneous Approach (ICD-10-PCS; 2024-06-25)
PROC: BF131ZZ Fluoroscopy of Gallbladder and Bile Ducts using Low Osmolar Contrast (ICD-10-PCS; 2024-06-25)
PROC: 0F923ZZ Drainage of Left Lobe Liver, Percutaneous Approach (ICD-10-PCS; 2024-06-25)
PROC: BF15ZZA Fluoroscopy of Liver, Guidance (ICD-10-PCS; 2024-06-25)
DX: A41.02 Sepsis due to Methicillin resistant Staphylococcus aureus (principal); J96.00 Acute respiratory failure, unspecified whether with hypoxia or hypercapnia; K72.00 Acute and subacute hepatic failure without coma; N17.0 Acute kidney failure with tubular necrosis; K75.0 Abscess of liver; I50.23 Acute on chronic systolic (congestive) heart failure; R65.21 Severe sepsis with septic shock; E11.10 Type 2 diabetes mellitus with ketoacidosis without coma; G92.8 Other toxic encephalopathy; I13.0 Hypertensive heart and chronic kidney disease with heart failure and stage 1 through stage 4 chronic kidney disease, or unspecified chronic kidney disease; I21.19 ST elevation (STEMI) myocardial infarction involving other coronary artery of inferior wall; E44.0 Moderate protein-calorie malnutrition; N39.0 Urinary tract infection, site not specified; N13.9 Obstructive and reflux uropathy, unspecified; E11.22 Type 2 diabetes mellitus with diabetic chronic kidney disease; E87.6 Hypokalemia; E66.9 Obesity, unspecified; I07.1 Rheumatic tricuspid insufficiency; I25.10 Atherosclerotic heart disease of native coronary artery without angina pectoris; I48.91 Unspecified atrial fibrillation; I49.3 Ventricular premature depolarization; J96.01 Acute respiratory failure with hypoxia; K59.00 Constipation, unspecified; K80.10 Calculus of gallbladder with chronic cholecystitis without obstruction; N28.1 Cyst of kidney, acquired; E87.1 Hypo-osmolality and hyponatremia; N18.32 Chronic kidney disease, stage 3b; E83.42 Hypomagnesemia; E83.51 Hypocalcemia; E88.09 Other disorders of plasma-protein metabolism, not elsewhere classified; K76.0 Fatty (change of) liver, not elsewhere classified; R31.0 Gross hematuria; K74.60 Unspecified cirrhosis of liver; Z68.41 Body mass index [BMI] 40.0-44.9, adult; Z87.891 Personal history of nicotine dependence; I25.2 Old myocardial infarction; Z51.5 Encounter for palliative care; Z79.02 Long term (current) use of antithrombotics/antiplatelets
CPT/HCPCS: 36415; 36569; 36600; 47532; 70450; 71045; 74176; 74183; 75989; 76705; 76775; 76942; 80048; 80053; 80061; 80074; 80076; 80307; 80320; 81001; 82010; 82105; 82140; 82378; 82570; 82805; 82962; 83036; 83605; 83690; 83735; 83930; 84100; 84132; 84156; 84300; 84443; 84478; 84484; 84550; 85007; 85014; 85018; 85025; 85027; 85610; 85730; 86850; 86900; 86901; 87040; 87070; 87077; 87081; 87086; 87147; 87186; 87205; 92507; 92610; 92941; 92973; 93005; 93306; 93458; 93925; 94003; 96372; 96374; 96375; 97110; 97116; 97163; 97530; 99152; 99291; G0378; J0692; J1815; J2185; J2250; J2405; J2470; J3480; J3490; J7060; Q9967